=== PATIENT | female | born 1940 | race Caucasian/White ===

== ENCOUNTER 2022-06-27 19:56 | Inpatient (IN) | payer MEDICARE, OTHER ==
[~2022-06-27] VITALS: Ht 154.9 cm; Wt 51.7 kg
--- NOTE | 2022-06-27 19:56 | NUR ---
[id number] from home for sob after walking a flight of stairs, sbp 200's, o2@89%ra on arrival, given NTG SL 1tab, o2 improved 97%RA. CONNECTED PT TO POX AND MONITOR. SAFETY MEASURES IN PLACE.
--- NOTE | 2022-06-27 20:36 | NUR ---
RANDY (GRAND DAUGHTER) [phone]
[2022-06-27] MEDS ORDERED: ONDANSETRON HCL/PF 4 MG/2 ML VIAL IVP ONE (21:00)
--- NOTE | 2022-06-27 21:17 | NUR ---
UPDATED CONNIE (DAUGHTER) [phone]
[2022-06-27 21:18] LABS: BASOPHILS % (AUTO) 0.4 % (0.0-2.0); EOSINOPHILS % (AUTO) 3.2 % (0.0-6.0); HEMATOCRIT 35 % (33-45); HEMOGLOBIN 11.4 g/dL (11.5-14.8); LYMPHOCYTES # (AUTO) 2.1 K/uL (0.8-4.8); MEAN CORPUSCULAR HGB CONC 32 g/dl (31.0-36.0); MEAN CORPUSCULAR VOLUME 90 fL (82-100); MONOCYTES # (AUTO) 0.7 K/uL (0.1-1.30); MONOCYTES % (AUTO) 8.3 % (2.0-12.0); NEUTROPHILS # (AUTO) 5.4 K/uL (1.8-8.9); NEUTROPHILS % (AUTO) 63.1 % (43.0-81.0); PLATELET COUNT (AUTO) 248 K/uL (150-450); RED BLOOD CELL COUNT(AUTO) 3.91 MIL/uL (4.0-5.2); WHITE BLOOD COUNT (AUTO) 8.5 K/uL (4.3-11.0)
[2022-06-27] MEDS ORDERED: ONDANSETRON HCL/PF 4 MG/2 ML VIAL ONE (21:18)
--- NOTE | 2022-06-27 21:49 | NUR ---
UPDATED GRAND DAUGHTER (RANDY) ON PT STATUS
[2022-06-27 21:57] LABS: CALCIUM, SERUM 9.6 mg/dL (8.5-10.1); CARBON DIOXIDE 24 mmol/L (21-32); CHLORIDE 104 mmol/L (98-107); CREATININE 2.4 mg/dL (0.6-1.3); GLUCOSE 141 mg/dL (74-106); POTASSIUM 5.1 mmol/L (3.5-5.1); SODIUM SERUM 137 mmol/L (136-145); UREA NITROGEN, BLOOD 40 mg/dL (7-18)
[2022-06-27] MEDS ORDERED: CEFEPIME 1 GM VIAL ONE (21:58)
[2022-06-27] MEDS ORDERED: VANCOMYCIN 1 GM in IV D5W 250 ML IV ONE (22:00)
[2022-06-27] MEDS ORDERED: CEFEPIME 1 GM in IV D5W 50 ML IV ONE (22:00)
[2022-06-27 22:10] LABS: ALANINE AMINOTRANSFERASE 20 U/L (12-78); ALBUMIN 3.5 g/dL (3.4-5.0); ALKALINE PHOSPHATASE 48 U/L (46-116); ASPARTATE AMINOTRANSFERASE 24 U/L (15-37); BILIRUBIN,DIRECT 0.1 mg/dL (0.0-0.2); BILIRUBIN,TOTAL 0.4 mg/dL (0.2-1.0); TOTAL PROTEIN, SERUM 7.6 g/dL (6.4-8.2)
--- NOTE | 2022-06-27 22:10 | NUR ---
TROPONIN 745; DR. WYATT ROLON AT NOTIFIED Addendum: 06/28/22 at 0026 by MAMTA TROPONIN 745; DR. CONSUELO ROLON AT NOTIFIED
[2022-06-27] MEDS ORDERED: ENOXAPARIN SODIUM 60 MG/0.6 ML DISP.SYRIN SQ ONE (22:30)
[2022-06-27] MEDS ORDERED: FUROSEMIDE 40 MG/4 ML VIAL IV ONE (22:30)
[2022-06-27] MEDS ORDERED: VANCOMYCIN 1 GM VIAL ONE (22:38)
--- NOTE | 2022-06-27 23:44 | NUR ---
UPDATED JOSE ANTONIO BARRAGAN
[2022-06-28 00:07] LABS: BILIRUBIN,URINE NEGATIVE (NEGATIVE); COLOR,URINE YELLOW (YELLOW); LEUKOCYTE ESTERASE ,URINE TRACE (NEGATIVE); NITRITE, URINE NEGATIVE (NEGATIVE); PROTEIN,URINE 2+ mg/dl (NEGATIVE); UGLUCOSE NEGATIVE (NEGATIVE); UROBILINOGEN,URINE 0.2 EU/dL (0.2)
[2022-06-28 00:19] LABS: BACTERIA,URINE Rare /HPF (None Seen); RBC,URINE 0-2 /HPF (0-2); SQUAMOUS EPITHELIAL CELL,UR Few /HPF (None Seen)
[2022-06-28] MEDS ORDERED: HYDROCODONE/APAP 5/325MG TABLET PO PRN (00:30)
[2022-06-28] MEDS ORDERED: Z GUARD REMEDY 4 OZ OINT TP PRN (00:30)
[2022-06-28] MEDS ORDERED: NITROGLYCERIN 0.4 MG/TAB BOTTLE SL ONE (00:30)
[2022-06-28] MEDS ORDERED: ZOLPIDEM TARTRATE 5 MG TABLET PO PRN (00:30)
[2022-06-28] MEDS ORDERED: DEXTROSE 50%-WATER 50 ML DISP.SYRIN IV PRN (00:30)
[2022-06-28] MEDS ORDERED: MORPHINE SULFATE INJ 2 MG/ML DISP.SYRIN IV PRN (00:30)
[2022-06-28] MEDS ORDERED: ONDANSETRON HCL/PF 4 MG/2 ML VIAL IVP PRN (00:30)
[2022-06-28] MEDS ORDERED: MAG HYDROX/AL HYDROX/SIMETH 30 ML UDC PO PRN (00:30)
[2022-06-28] MEDS ORDERED: AZITHROMYCIN 500 MG in IV D5W 250 ML IV SCH ×2 (00:30→21:00)
[2022-06-28] MEDS ORDERED: MAGNESIUM HYDROXIDE 30 ML UDC PO PRN (00:30)
--- NOTE | 2022-06-28 00:54 | NUR ---
PT AMBULATORY TO RESTROOM WITH 1 PERSON ASSIST. ADLS DONE. ALL NEEDS MET AT THIS TIME. PT KEPT CLEAN AND DRY
[2022-06-28] MEDS ORDERED: AZITHROMYCIN 500 MG VIAL ONE (01:42)
--- NOTE | 2022-06-28 01:55 | NUR ---
RN DOCUMENTATION AT PT'S BEDSIDE
--- NOTE | 2022-06-28 01:56 | NUR ---
INFLUENZA SWAB COLLECTED AND SENT TO LAB
--- NOTE | 2022-06-28 02:37 | NUR ---
TROPONIN 874; JENIFFER CASE OPERATOR NOTIFIED VIA TEXT Addendum: 06/28/22 at 0238 by MAMTA TROPONIN 874; JENIFFER CASE OPERATOR NOTIFIED VIA TEXT WITH NO NEW ORDERS
--- NOTE | 2022-06-28 04:32 | NUR ---
PLATER SUPERVISOR AT 'S STEVE
[2022-06-28 05:07] LABS: BASOPHILS # (AUTO) 0.1 K/uL (0.0-0.2); BASOPHILS % (AUTO) 0.6 % (0.0-2.0); EOSINOPHILS % (AUTO) 2.8 % (0.0-6.0); HEMATOCRIT 33 % (33-45); HEMOGLOBIN 10.9 g/dL (11.5-14.8); LYMPHOCYTES # (AUTO) 2.4 K/uL (0.8-4.8); LYMPHOCYTES % (AUTO) 24.4 % (20.0-44.0); MEAN CORPUSCULAR HGB CONC 33 g/dl (31.0-36.0); MEAN CORPUSCULAR VOLUME 91 fL (82-100); MONOCYTES # (AUTO) 0.8 K/uL (0.1-1.30); MONOCYTES % (AUTO) 8.2 % (2.0-12.0); NEUTROPHILS # (AUTO) 6.3 K/uL (1.8-8.9); PLATELET COUNT (AUTO) 235 K/uL (150-450); RED BLOOD CELL COUNT(AUTO) 3.64 MIL/uL (4.0-5.2); WHITE BLOOD COUNT (AUTO) 9.8 K/uL (4.3-11.0)
[2022-06-28 05:16] LABS: CALCIUM, SERUM 9.1 mg/dL (8.5-10.1); CARBON DIOXIDE 25 mmol/L (21-32); CHLORIDE 102 mmol/L (98-107); CREATININE 2.5 mg/dL (0.6-1.3); GLUCOSE 158 mg/dL (74-106); POTASSIUM 4.7 mmol/L (3.5-5.1); SODIUM SERUM 135 mmol/L (136-145); UREA NITROGEN, BLOOD 42 mg/dL (7-18)
[2022-06-28] MEDS ORDERED: ACETAMINOPHEN 325 MG TABLET ONE (05:20)
[2022-06-28 05:22] LABS: ALANINE AMINOTRANSFERASE 18 U/L (12-78); ALBUMIN 3.3 g/dL (3.4-5.0); ALKALINE PHOSPHATASE 47 U/L (46-116); ASPARTATE AMINOTRANSFERASE 34 U/L (15-37); BILIRUBIN,DIRECT 0.1 mg/dL (0.0-0.2); BILIRUBIN,TOTAL 0.5 mg/dL (0.2-1.0); MAGNESIUM 1.9 mg/dL (1.8-2.4); PHOSPHORUS 4.1 mg/dL (2.5-4.9); TOTAL PROTEIN, SERUM 7.2 g/dL (6.4-8.2)
[2022-06-28] MEDS: ACETAMINOPHEN 325 MG TABLET PO PRN ×2 (05:22→16:43)
--- NOTE | 2022-06-28 05:37 | NUR ---
trop 1072
[2022-06-28 06:13] LABS: THYROID STIMULATING HORMONE 6.396 uIU/mL (0.358-3.74)
--- NOTE | 2022-06-28 06:39 | NUR ---
Lobo marks in LELE - 06/28/[address] ELIE ROLON AT 'S BEDSIDE FOR EVAL.
--- NOTE | 2022-06-28 06:39 | NUR ---
DR. PILO ROLON AT PT'S BEDSIDE FOR EVAL.
--- NOTE | 2022-06-28 07:15 | NUR ---
RECEVED PT FROM DANYELL CARTY PT AWAKE AND FALLOW COMMAND
--- NOTE | 2022-06-28 07:24 | NUR ---
VSS. ENDORSED MARANDA TO ANIA CARTY.
[2022-06-28 07:42] LABS: CHOLESTEROL 279 mg/dL (<200); HDL CHOLESTEROL 83 mg/dL (40-60); LDL 168 mg/dL (0-99); TRIGLYCERIDES 162 mg/dL (30-150)
[2022-06-28] MEDS: BLOOD SUGAR DIAGNOSTIC 1 EACH STRIP IN SCH ×4 (08:17→21:47)
[2022-06-28] MEDS ORDERED: PANTOPRAZOLE 40 MG VIAL IV SCH (09:00)
[2022-06-28] MEDS ORDERED: CEFTRIAXONE 1GM BAG (ER ONLY) 1 GM/50 ML PIGGYBACK IV SCH (09:00)
[2022-06-28] MEDS ORDERED: CALC-1180 PO (09:15)
[2022-06-28] MEDS ORDERED: MULT-447 PO (09:15)
--- NOTE | 2022-06-28 09:36 | NUR ---
GOT BED 113-2
[2022-06-28] MEDS: CARVEDILOL 3.125 MG TABLET PO SCH ×2 (10:30→23:46)
[2022-06-28] MEDS: ASPIRIN 81 MG TAB.CHEW PO SCH (10:30)
[2022-06-28] MEDS: FUROSEMIDE 40 MG/4 ML VIAL IV SCH ×2 (10:30→21:26)
--- NOTE | 2022-06-28 10:33 | NUR ---
WATING FOR TELMETERY BED
[2022-06-28] MEDS: PANTOPRAZOLE 40 MG TABLET.DR PO SCH (10:35)
[2022-06-28] MEDS: AMLODIPINE BESYLATE 5 MG TABLET PO SCH (10:35)
[2022-06-28] MEDS ORDERED: FUROSEMIDE 40 MG/4 ML VIAL ONE (10:37)
[2022-06-28] MEDS ORDERED: AMLODIPINE BESYLATE 10 MG TABLET ONE (10:38)
[2022-06-28] MEDS ORDERED: ASPIRIN 81 MG TAB.CHEW ONE (10:39)
[2022-06-28] MEDS ORDERED: CARVEDILOL 3.125 MG TABLET ONE (10:39)
[2022-06-28] MEDS ORDERED: PANTOPRAZOLE 40 MG TABLET.DR PO ONE (10:40)
[2022-06-28] MEDS ORDERED: CEFTRIAXONE 1 G in IV NS 0.9% 50 ML IV SCH (11:00)
--- NOTE | 2022-06-28 11:35 | NUR ---
HAND OFF DARLINE CARTY TO ROOM 115-2 VIA ILIANA JENKINS VS AND CONDITION
[2022-06-28 12:00] VITALS: BP 111/64
[2022-06-28 16:00] VITALS: BP 111/64
[2022-06-28] MEDS ORDERED: HEPARIN SODIUM, PORCINE 5000 UNITS/1 ML VIAL IVP ONE (16:00)
[2022-06-28] MEDS: HEPARIN INFUSION/D5W 500 ML IV PRN (17:46)
--- NOTE | 2022-06-28 18:18 | NUR ---
RN NOTE HEPARIN LOADING DOSE OF 4130U IV GIVEN FOLLOWED BY DRIP OF STARTING DOSE OF 885 U/HR. NO ACTIVE BLEEDING NOTED. WILL CONTINUE TO MONITOR. REPEAT PTT @ 0000 ON 06/29/22.
--- NOTE | 2022-06-28 19:10 | NUR ---
RN NOTES RECEIVED REPORT FROM MORNING RN. PATIENT IN BED A/O X2 WITH PERIODS OF CONFUSION. WITH IV ACCESS AT R WRIST #20 PATENT ON HEPARIN DRIP AT 885 UNITS/HR NO BLEEDING NOTED. ON ROOM AIR SATING 98% NO SOB NO DISTRESS NOTED AT THIS TIME. ALL SAFETY MEASURES IN PLACE AT ALL TIMES HOB ELEVATED. CALL LIGHT WITHIN REACH. WILL CLOSELY MONITOR THE PATIENT
[2022-06-28 20:00] VITALS: BP 108/60
[2022-06-28] MEDS ORDERED: ENOXAPARIN SODIUM 60 MG/0.6 ML DISP.SYRIN SQ SCH (21:00)
[2022-06-28] MEDS: ATORVASTATIN 10 MG TABLET PO SCH (21:27)
[2022-06-28] MEDS: INSULIN REGULAR, HUMAN 100 UNIT/ML 3 ML VIAL SQ PRN (21:50)
[2022-06-28 22:00] VITALS: BP 135/80
--- NOTE | 2022-06-28 23:30 | NUR ---
RN NOTES PATIENT IS AGITATED CRYING AND TRGYING TO GET OURT OF BED. DR SWIFT MADE AWARE WITH NEW ORDER FOR ZYPREZA 1 TIME DOOSE. WILL CONTINUE TO MONITOR THE PATIENT
[2022-06-29] VITALS: BP 110/68
[2022-06-29] MEDS ORDERED: OLANZAPINE 10 MG VIAL IM ONE (01:00)
--- NOTE | 2022-06-29 01:30 | NUR ---
RN NOTES APTT RESULT 170. HEPARIN HOLD FOR 60 MINUTES THEN DECREASE DOSE TO 685 UNITS/HR. REPET APTT AT 0730. WILL CLOSELY MONITOR THE PATIENT
[2022-06-29 04:00] VITALS: BP 110/68
[2022-06-29 06:07] LABS: BASOPHILS % (AUTO) 0.3 % (0.0-2.0); EOSINOPHILS % (AUTO) 1.8 % (0.0-6.0); HEMATOCRIT 37 % (33-45); HEMOGLOBIN 11.9 g/dL (11.5-14.8); LYMPHOCYTES # (AUTO) 2.6 K/uL (0.8-4.8); LYMPHOCYTES % (AUTO) 25.3 % (20.0-44.0); MEAN CORPUSCULAR HGB CONC 33 g/dl (31.0-36.0); MEAN CORPUSCULAR VOLUME 90 fL (82-100); MONOCYTES # (AUTO) 0.7 K/uL (0.1-1.30); MONOCYTES % (AUTO) 6.7 % (2.0-12.0); NEUTROPHILS # (AUTO) 6.7 K/uL (1.8-8.9); NEUTROPHILS % (AUTO) 65.9 % (43.0-81.0); PLATELET COUNT (AUTO) 266 K/uL (150-450); RED BLOOD CELL COUNT(AUTO) 4.03 MIL/uL (4.0-5.2); WHITE BLOOD COUNT (AUTO) 10.2 K/uL (4.3-11.0)
[2022-06-29 06:39] LABS: ALANINE AMINOTRANSFERASE 20 U/L (12-78); ALBUMIN 3.7 g/dL (3.4-5.0); ALKALINE PHOSPHATASE 51 U/L (46-116); ASPARTATE AMINOTRANSFERASE 27 U/L (15-37); BILIRUBIN,TOTAL 0.4 mg/dL (0.2-1.0); CALCIUM, SERUM 9.6 mg/dL (8.5-10.1); CARBON DIOXIDE 22 mmol/L (21-32); CHLORIDE 97 mmol/L (98-107); CREATININE 3.6 mg/dL (0.6-1.3); GLUCOSE 186 mg/dL (74-106); PHOSPHORUS 5.7 mg/dL (2.5-4.9); POTASSIUM 4.5 mmol/L (3.5-5.1); SODIUM SERUM 134 mmol/L (136-145); UREA NITROGEN, BLOOD 49 mg/dL (7-18)
[2022-06-29 06:42] LABS: CHOLESTEROL 292 mg/dL (<200); HDL CHOLESTEROL 101 mg/dL (40-60); LDL 179 mg/dL (0-99); TRIGLYCERIDES 94 mg/dL (30-150)
--- NOTE | 2022-06-29 06:51 | NUR ---
RN NOTES PATIENT REMAINS STABLE NO SIGNIFICANT CHANGES. IV ACCESS PATENT ON HEPARIN DRIP AT 685 UNITS/HR NO BLEEDING NOTED. WITH BILATERAL WRIST RESTRAINTS IN PLACE, ALL SAFETY MEASURES IN PLACE AT ALL TIMES, WILL ENDORSED TO MORNING SHIFT FO9R MARANDA
--- NOTE | 2022-06-29 07:56 | NUR ---
RN OPENING NOTES RECEIVED PATIENT IN BED A/O X2 WITH PERIODS OF CONFUSION. WITH IV ACCESS AT R WRIST #20 PATENT ON HEPARIN DRIP AT 685 UNITS/HR NO BLEEDING NOTED. 0730 PTT DRAWN RESUMED HEPARIN DRIP PENDING RESULTS.ON ROOM AIR NO SOB NO DISTRESS NOTED AT THIS TIME. ALL SAFETY MEASURES IN PLACE AT ALL TIMES HOB ELEVATED. CALL LIGHT WITHIN REACH.
[2022-06-29 08:00] VITALS: BP 169/81
[2022-06-29] MEDS: AMLODIPINE BESYLATE 5 MG TABLET PO SCH (08:25)
[2022-06-29] MEDS: INSULIN REGULAR, HUMAN 100 UNIT/ML 3 ML VIAL SQ PRN ×4 (08:25→21:33)
[2022-06-29] MEDS: ASPIRIN 81 MG TAB.CHEW PO SCH (08:25)
[2022-06-29] MEDS: FUROSEMIDE 40 MG/4 ML VIAL IV SCH (08:25)
[2022-06-29] MEDS: PANTOPRAZOLE 40 MG TABLET.DR PO SCH (08:26)
[2022-06-29] MEDS: BLOOD SUGAR DIAGNOSTIC 1 EACH STRIP IN SCH ×4 (08:26→21:32)
[2022-06-29] MEDS: CARVEDILOL 3.125 MG TABLET PO SCH ×2 (08:26→21:22)
--- NOTE | 2022-06-29 09:00 | NUR ---
RN NOTE RECEIVED PTT 132.2 WILL HOLD INFUSION FOR 1HR AND AT 1000 BY 200UNITS TO 485U/HR. NEXT PTT DRAW 1600. CHARGE NURSE MADE AWARE
[2022-06-29 12:00] VITALS: BP 135/58
[2022-06-29 16:00] VITALS: BP 108/60
--- NOTE | 2022-06-29 17:00 | NUR ---
RN NOTE PTT 77.3 DECREASED HEPARIN TO 435 UNITS/HR. CONFIRMED WITH CHARGE NURSE. NEXT PTT 2100 Addendum: 06/29/22 at 1750 by JOSE ANDRADE RN NEXT PTT 2300
[2022-06-29] MEDS: ENSURE ENLIVE 237 ML LIQUID (VANILLA) PO SCH (17:03)
--- NOTE | 2022-06-29 18:42 | NUR ---
RN CLOSING NOTES RECEIVED PATIENT IN BED A/O X2 WITH PERIODS OF CONFUSION. WITH IV ACCESS AT R WRIST #20 PATENT ON HEPARIN DRIP AT 435 UNITS/HR NO BLEEDING NOTED. NEXT PTT TO BE DRAWN 2300.ON ROOM AIR NO SOB NO DISTRESS NOTED AT THIS TIME. ALL SAFETY MEASURES IN PLACE AT ALL TIMES HOB ELEVATED. CALL LIGHT WITHIN REACH. WILL ENDORSE TO NIGHT NURSE FOR MARANDA
[2022-06-29 20:00] VITALS: BP 154/62
[2022-06-29] MEDS: ATORVASTATIN 10 MG TABLET PO SCH (21:21)
[2022-06-30] VITALS: BP 153/63
[2022-06-30 04:00] VITALS: BP 107/56
--- NOTE | 2022-06-30 07:03 | NUR ---
RN NOTES PATIENT REMAINS STABLE NO SIGNIFICANT CHANGES. IV ACCESS PATENT ON HEPARIN DRIP AT 435 UNITS/HR NO BLEEDING NOTED. WITH BILATERAL WRIST RESTRAINTS IN PLACE, ALL SAFETY MEASURES IN PLACE AT ALL TIMES, WILL ENDORSED TO MORNING SHIFT FO9R MARANDA
[2022-06-30] MEDS: HEPARIN INFUSION/D5W 500 ML IV PRN (07:24)
[2022-06-30] MEDS: BLOOD SUGAR DIAGNOSTIC 1 EACH STRIP IN SCH ×4 (07:50→21:35)
[2022-06-30 08:00] VITALS: BP 118/67
[2022-06-30] MEDS: ENSURE ENLIVE 237 ML LIQUID (VANILLA) PO SCH (08:00)
[2022-06-30] MEDS: CARVEDILOL 3.125 MG TABLET PO SCH ×2 (08:05→20:10)
[2022-06-30] MEDS: PANTOPRAZOLE 40 MG TABLET.DR PO SCH (08:05)
[2022-06-30] MEDS: ASPIRIN 81 MG TAB.CHEW PO SCH (08:05)
[2022-06-30] MEDS: AMLODIPINE BESYLATE 5 MG TABLET PO SCH (08:06)
[2022-06-30 08:15] LABS: BASOPHILS % (AUTO) 0.3 % (0.0-2.0); EOSINOPHILS % (AUTO) 2.1 % (0.0-6.0); HEMATOCRIT 36 % (33-45); HEMOGLOBIN 11.5 g/dL (11.5-14.8); LYMPHOCYTES # (AUTO) 2.5 K/uL (0.8-4.8); LYMPHOCYTES % (AUTO) 23.4 % (20.0-44.0); MEAN CORPUSCULAR HGB CONC 32 g/dl (31.0-36.0); MEAN CORPUSCULAR VOLUME 90 fL (82-100); MONOCYTES # (AUTO) 0.8 K/uL (0.1-1.30); NEUTROPHILS # (AUTO) 7.3 K/uL (1.8-8.9); NEUTROPHILS % (AUTO) 67.2 % (43.0-81.0); PLATELET COUNT (AUTO) 293 K/uL (150-450); RED BLOOD CELL COUNT(AUTO) 3.96 MIL/uL (4.0-5.2); WHITE BLOOD COUNT (AUTO) 10.8 K/uL (4.3-11.0)
--- NOTE | 2022-06-30 08:29 | NUR ---
RN NOTE APTT 59.4. NO CHANGE IN HEPARIN DRIP PER PROTOCOL. NEXT APTT IN 24 HOURS PER PROTOCOL
[2022-06-30] MEDS: INSULIN REGULAR, HUMAN 100 UNIT/ML 3 ML VIAL SQ PRN ×4 (08:33→21:35)
[2022-06-30 08:47] LABS: ALANINE AMINOTRANSFERASE 19 U/L (12-78); ALBUMIN 3.6 g/dL (3.4-5.0); ALKALINE PHOSPHATASE 49 U/L (46-116); ASPARTATE AMINOTRANSFERASE 23 U/L (15-37); BILIRUBIN,TOTAL 0.4 mg/dL (0.2-1.0); CARBON DIOXIDE 24 mmol/L (21-32); CHLORIDE 96 mmol/L (98-107); CREATININE 4.1 mg/dL (0.6-1.3); GLUCOSE 155 mg/dL (74-106); MAGNESIUM 2.2 mg/dL (1.8-2.4); PHOSPHORUS 6.3 mg/dL (2.5-4.9); POTASSIUM 4.2 mmol/L (3.5-5.1); SODIUM SERUM 134 mmol/L (136-145); UREA NITROGEN, BLOOD 58 mg/dL (7-18)
--- NOTE | 2022-06-30 09:07 | NUR ---
lab called in stated that Troponin level went up to 1106 today notified to waiting for returned call back
--- NOTE | 2022-06-30 09:49 | NUR ---
RN NOTE DAUGHTER CONNIE UPDATED ON PT'S CONDITION
[2022-06-30] MEDS: HEPARIN SODIUM, PORCINE 5000 UNITS/1 ML VIAL SQ SCH ×2 (11:01→20:17)
[2022-06-30 12:00] VITALS: BP 108/55
--- NOTE | 2022-06-30 15:23 | NUR ---
RN NOTE FAMILY AT BEDSIDE. DAUGHTER AND GRAND DAUGHTER UPDATED ON PT'S SITUATION. GRAND DAUGHTER WISHES TO SPEAK WITH CM REGARDING DISCHARGE PLAN. CM NUMBER GIVEN TO FAMILY. FAMILY IN AGREEMENT WITH POC AT THIS TIME.
[2022-06-30 16:00] VITALS: BP 98/57
--- NOTE | 2022-06-30 16:00 | NUR ---
RN NOTE BILATERAL SOFT WRIST RESTRAINS REMOVED AT THIS TIME. PT IS COOPERATIVE. STILL WITH SOME CONFUSION BUT VERBALIZES UNDERSTANDING OF STAYING IN BED AT THIS TIME. FAMILY AT BEDSIDE.
[2022-06-30 20:00] VITALS: BP 116/60
[2022-06-30] MEDS: ACETAMINOPHEN 325 MG TABLET PO PRN (20:06)
[2022-06-30] MEDS: ATORVASTATIN 10 MG TABLET PO SCH (22:00)
[2022-07-01] VITALS: BP 151/66
[2022-07-01 04:00] VITALS: BP 124/74
[2022-07-01 06:01] LABS: BASOPHILS % (AUTO) 0.3 % (0.0-2.0); EOSINOPHILS % (AUTO) 2.6 % (0.0-6.0); HEMATOCRIT 35 % (33-45); HEMOGLOBIN 11.5 g/dL (11.5-14.8); LYMPHOCYTES # (AUTO) 1.9 K/uL (0.8-4.8); LYMPHOCYTES % (AUTO) 21.6 % (20.0-44.0); MEAN CORPUSCULAR HGB CONC 33 g/dl (31.0-36.0); MEAN CORPUSCULAR VOLUME 89 fL (82-100); MONOCYTES # (AUTO) 0.8 K/uL (0.1-1.30); MONOCYTES % (AUTO) 9.1 % (2.0-12.0); NEUTROPHILS # (AUTO) 5.8 K/uL (1.8-8.9); NEUTROPHILS % (AUTO) 66.4 % (43.0-81.0); PLATELET COUNT (AUTO) 281 K/uL (150-450); RED BLOOD CELL COUNT(AUTO) 3.93 MIL/uL (4.0-5.2); WHITE BLOOD COUNT (AUTO) 8.7 K/uL (4.3-11.0)
[2022-07-01 06:15] LABS: CALCIUM, SERUM 9.1 mg/dL (8.5-10.1); CARBON DIOXIDE 24 mmol/L (21-32); CHLORIDE 98 mmol/L (98-107); CREATININE 4.4 mg/dL (0.6-1.3); GLUCOSE 176 mg/dL (74-106); MAGNESIUM 2.2 mg/dL (1.8-2.4); PHOSPHORUS 6.2 mg/dL (2.5-4.9); POTASSIUM 4.6 mmol/L (3.5-5.1); SODIUM SERUM 136 mmol/L (136-145); UREA NITROGEN, BLOOD 68 mg/dL (7-18)
--- NOTE | 2022-07-01 07:01 | NUR ---
END OF SHIFT, PT A/O X2, WITH INTERMITTENT CONFUSION, AT ROOM AIR, NO SOB/ACUTE DISTRESS NOTED, NSR IN TELE MONITOR, PT JUST PULLED IV THIS MORNING, LEFT FA 20G INSERTED, PATENT AND INTACT, ON BILATERAL SOFT WRITS RESTRAINS, NO CIRCULATION COMPROMISED, NO ABNORMALITY NOTED AT SITE, ALL SAFETY MEASURES IN PLACE. CALL LIGHT WITHIN REACH, BED LOCKED AT LOWEST POSITION, SIDE RAILS UP X2, OTHERWISE NO SIGNIFICANT CHANGE IN CONDITION DURING THE NIGHT, ENDORSE TO SPRING INTERN FOR CONTINUITY OF CARE.
--- NOTE | 2022-07-01 07:22 | NUR ---
RN OPENING NOTES RECEIVED PATIENT IN BED A/O X2 WITH PERIODS OF CONFUSION. WITH IV ACCESS AT R WRIST #20 .ON ROOM AIR NO SOB NO DISTRESS NOTED AT THIS TIME. ALL SAFETY MEASURES IN PLACE AT ALL TIMES HOB ELEVATED. CALL LIGHT WITHIN REACH.
[2022-07-01 08:00] VITALS: BP 140/77
[2022-07-01] MEDS: BLOOD SUGAR DIAGNOSTIC 1 EACH STRIP IN SCH ×4 (08:44→21:57)
[2022-07-01] MEDS: ASPIRIN 81 MG TAB.CHEW PO SCH (08:45)
[2022-07-01] MEDS: AMLODIPINE BESYLATE 5 MG TABLET PO SCH (08:45)
[2022-07-01] MEDS: PANTOPRAZOLE 40 MG TABLET.DR PO SCH (08:45)
[2022-07-01] MEDS: CARVEDILOL 3.125 MG TABLET PO SCH ×2 (08:46→21:56)
[2022-07-01] MEDS: HEPARIN SODIUM, PORCINE 5000 UNITS/1 ML VIAL SQ SCH ×2 (08:48→21:57)
[2022-07-01] MEDS: ENSURE ENLIVE 237 ML LIQUID (VANILLA) PO SCH (08:55)
[2022-07-01] MEDS: INSULIN REGULAR, HUMAN 100 UNIT/ML 3 ML VIAL SQ PRN ×3 (11:29→21:57)
[2022-07-01 12:00] VITALS: BP 127/76
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
[2022-07-01 16:00] VITALS: BP 138/64
--- NOTE | 2022-07-01 16:00 | NUR ---
RN NOTE PSYCH EVAL PLACED REQUESTED BY MILITARY COMMUNICATIONS SPECIALIST. DR GARCIA MADE AWARE. FACE SHEET SENT TO [employer]
--- NOTE | 2022-07-01 18:42 | NUR ---
RN CLOSING NOTES RECEIVED PATIENT IN BED A/O X2 WITH PERIODS OF CONFUSION. WITH IV ACCESS AT LEFT WRIST #20 SL .ON ROOM AIR NO SOB NO DISTRESS NOTED AT THIS TIME. ALL SAFETY MEASURES IN PLACE AT ALL TIMES HOB ELEVATED. CALL LIGHT WITHIN REACH. WILL ENDORSE TO NIGHT NURSE FOR MARANDA
[2022-07-01 20:00] VITALS: BP 136/69
[2022-07-01] MEDS: ATORVASTATIN 10 MG TABLET PO SCH (21:56)
[2022-07-02] VITALS: BP 135/76
[2022-07-02 06:00] VITALS: BP 135/70
[2022-07-02 06:17] LABS: BASOPHILS % (AUTO) 0.4 % (0.0-2.0); EOSINOPHILS % (AUTO) 1.3 % (0.0-6.0); HEMATOCRIT 34 % (33-45); HEMOGLOBIN 10.9 g/dL (11.5-14.8); LYMPHOCYTES # (AUTO) 1.4 K/uL (0.8-4.8); LYMPHOCYTES % (AUTO) 13.5 % (20.0-44.0); MEAN CORPUSCULAR HGB CONC 32 g/dl (31.0-36.0); MEAN CORPUSCULAR VOLUME 90 fL (82-100); MONOCYTES # (AUTO) 0.5 K/uL (0.1-1.30); MONOCYTES % (AUTO) 5.3 % (2.0-12.0); NEUTROPHILS # (AUTO) 8.2 K/uL (1.8-8.9); NEUTROPHILS % (AUTO) 79.5 % (43.0-81.0); PLATELET COUNT (AUTO) 273 K/uL (150-450); RED BLOOD CELL COUNT(AUTO) 3.76 MIL/uL (4.0-5.2); WHITE BLOOD COUNT (AUTO) 10.3 K/uL (4.3-11.0)
[2022-07-02 06:55] LABS: CALCIUM, SERUM 8.9 mg/dL (8.5-10.1); CARBON DIOXIDE 26 mmol/L (21-32); CHLORIDE 99 mmol/L (98-107); CREATININE 4.1 mg/dL (0.6-1.3); GLUCOSE 150 mg/dL (74-106); MAGNESIUM 2.5 mg/dL (1.8-2.4); PHOSPHORUS 6.5 mg/dL (2.5-4.9); POTASSIUM 4.3 mmol/L (3.5-5.1); SODIUM SERUM 138 mmol/L (136-145); UREA NITROGEN, BLOOD 75 mg/dL (7-18)
--- NOTE | 2022-07-02 07:00 | NUR ---
RN NOTE RECEIVED PATIENT IN BED RESTING,CONFUSED,ON ROOM AIR O2:96% IV SITE IS ON LEFT FOREARM INTACT PATENT,INCONTINENT BOWEL/BLADDER SAFETY MEASURE IMPLEMENT BED IN LOW POSITION AND LOCKED,BED ALARM IS ON CONTINUE TO MONITOR.
--- NOTE | 2022-07-02 07:18 | NUR ---
RN NOTES, PATIENT ON RA, NO SOB/ACUTE DISTRESS NOTED, WITH INTERMITTENT CONFUSION AT TIMES, WITH OPTIMAL O2 SAT LEVEL, NO SIGNIFICANT CHANGE IN CONDITION, SR UP x3, CALL LIGHT WITHIN REACH, BED LOCKED AND IN LOWEST POSITION , ENDORSED TO LUIS ENRIQUE RN FOR CONTINUATION OF CARE.
[2022-07-02] MEDS: ENSURE ENLIVE 237 ML LIQUID (VANILLA) PO SCH (07:36)
[2022-07-02] MEDS: BLOOD SUGAR DIAGNOSTIC 1 EACH STRIP IN SCH ×4 (07:38→22:14)
[2022-07-02 08:00] VITALS: BP 162/74
[2022-07-02] MEDS: CARVEDILOL 3.125 MG TABLET PO SCH ×2 (08:28→22:05)
[2022-07-02] MEDS: PANTOPRAZOLE 40 MG TABLET.DR PO SCH (08:29)
[2022-07-02] MEDS: AMLODIPINE BESYLATE 5 MG TABLET PO SCH (08:29)
[2022-07-02] MEDS: ASPIRIN 81 MG TAB.CHEW PO SCH (08:32)
[2022-07-02] MEDS: HEPARIN SODIUM, PORCINE 5000 UNITS/1 ML VIAL SQ SCH ×2 (08:33→22:06)
[2022-07-02] MEDS ORDERED: QUETIAPINE FUMARATE 25 MG TABLET PO PRN (10:00)
--- NOTE | 2022-07-02 10:03 | NUR ---
RN NOTE PT SEEN BY DR ALICEA, ORDERED,GRIMM CATH INSERTION FOR STRICT MEASURING INTAKE AND OUTPUT NOTED AND CARRIED OUT,INSERT GRIMM CATH 16 FR MD ORDERED.
--- NOTE | 2022-07-02 10:40 | NUR ---
[employer] Application: Per pt.'s daughter, Clara tel:[phone] request SW emailed her the [employer] application and provided link to [employer] website for additional information and instructions to [email or web address].
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
[2022-07-02] MEDS: INSULIN REGULAR, HUMAN 100 UNIT/ML 3 ML VIAL SQ PRN ×3 (11:52→22:07)
[2022-07-02] MEDS: IV NS 0.9% 1,000 ML IV PRN (15:05)
[2022-07-02 16:00] VITALS: BP 138/59
--- NOTE | 2022-07-02 18:30 | NUR ---
RN NOTE PATIENT REMAINS CONFUSED ON ROOM AIR O2:97% NO SOB NOT ACUTE DISTRESS NOTED,ALL DUE MEDS GIVEN MD ORDERED,GRIMM IN PLACE URINE DRAINING YELLOW AND CLEAR BY GRAVITY,KEPT CLEAN AND DRY ALL THE TIME,REPOSITIONED AND TURNED EVERY 2 HOURS.ALL NEEDS MET,WILL ENDORSE NEXT COMING SHIFT FOR CONTINUATION OF CARE
[2022-07-02] MEDS: ACETAMINOPHEN 325 MG TABLET PO PRN (18:43)
--- NOTE | 2022-07-02 18:43 | NUR ---
RN NOTE ACETAMINOPHEN 650 PRN GIVEN PATIENT REQUESTED,CONTINUE TO MONITOR.
[2022-07-02] MEDS: ATORVASTATIN 10 MG TABLET PO SCH (22:01)
[2022-07-03] VITALS: BP 139/76
[2022-07-03] MEDS: IV NS 0.9% 1,000 ML IV PRN (02:01)
[2022-07-03 04:00] VITALS: BP 147/84
--- NOTE | 2022-07-03 06:56 | NUR ---
END OF SHIFT, PATIENT ON RA, NO SOB/ACUTE DISTRESS NOTED, WITH INTERMITTENT CONFUSION AT TIMES, WITH OPTIMAL O2 SAT LEVEL, WITH F/C IN PLACE 450ML DURING THE NIGHT, OTHERWISE NO SIGNIFICANT CHANGE IN CONDITION, SR UP x3, CALL LIGHT WITHIN REACH, BED LOCKED AND IN LOWEST POSITION , WILL ENDORSE CONTINUITY OF CARE TO ONCOMING NURSE.
--- NOTE | 2022-07-03 07:20 | NUR ---
RN NOTE RECEIVED PATIENT IN BED RESTING,CONFUSED,SLEEPING,VERBALLY RESPONSIVE ON ROOM AIR O2:95%,IV SITE IS ON LEFT FOREARM INTACT PATENT,INCONTINENT BOWEL/BLADDER,SAFETY MEASURE IMPLEMENT,BED IN LOW POSITION AND LOCKED,BED ALARM IS ON,CONTINUE TO MONITOR.
[2022-07-03 08:00] VITALS: BP 105/51
[2022-07-03 08:07] LABS: CALCIUM, SERUM 8.7 mg/dL (8.5-10.1); CARBON DIOXIDE 24 mmol/L (21-32); CHLORIDE 106 mmol/L (98-107); CREATININE 3.3 mg/dL (0.6-1.3); GLUCOSE 114 mg/dL (74-106); POTASSIUM 5.2 mmol/L (3.5-5.1); SODIUM SERUM 140 mmol/L (136-145); UREA NITROGEN, BLOOD 66 mg/dL (7-18)
[2022-07-03] MEDS: ENSURE ENLIVE 237 ML LIQUID (VANILLA) PO SCH (08:10)
[2022-07-03] MEDS: BLOOD SUGAR DIAGNOSTIC 1 EACH STRIP IN SCH ×4 (08:10→22:37)
[2022-07-03] MEDS: HEPARIN SODIUM, PORCINE 5000 UNITS/1 ML VIAL SQ SCH ×2 (08:30→22:36)
[2022-07-03] MEDS: ASPIRIN 81 MG TAB.CHEW PO SCH (08:33)
[2022-07-03] MEDS: AMLODIPINE BESYLATE 5 MG TABLET PO SCH (08:39)
[2022-07-03] MEDS: CARVEDILOL 3.125 MG TABLET PO SCH ×2 (08:40→22:35)
[2022-07-03] MEDS: PANTOPRAZOLE 40 MG TABLET.DR PO SCH (08:42)
[2022-07-03] MEDS ORDERED: SODIUM POLYSTYRENE SULFONATE 15 G/60 ML BOTTLE PO ONE (09:00)
--- NOTE | 2022-07-03 09:15 | NUR ---
RN NOTE KAYEXELATE 30 GRAM GIVEN ONCE FOR POTASSIUM 5.2 MD ORDERED,CONTINUE TO MONITOR.
--- NOTE | 2022-07-03 09:45 | NUR ---
RECEIVED PATIENT ASLEEP BUT AROUSABLE, ORIENTED TO PERSON, BUT SOME CONFUSION, NO SIGNS AND SYMPTOMS OF IN DISTRESS, NO COMPLAINT OF SHORT OF BREATHE. STILL ON RESTRAINT BILATERAL,
[2022-07-03] MEDS: INSULIN REGULAR, HUMAN 100 UNIT/ML 3 ML VIAL SQ PRN ×3 (11:32→22:40)
[2022-07-03 12:00] VITALS: BP 117/56
[2022-07-03] MEDS ORDERED: POLYETHYLENE GLYCOL 3350 17 GM POWD.PACK PO STA (13:36)
[2022-07-03] MEDS: ACETAMINOPHEN 325 MG TABLET PO PRN ×2 (13:47→22:34)
--- NOTE | 2022-07-03 14:03 | NUR ---
miralux given as per order due to constipation, Tylenol given one time due to complaint of right shoulder, unable to assess pain scale, will check after an hour for pain, daughter at bedside.
--- NOTE | 2022-07-03 15:31 | NUR ---
Psych consult update: SW received voicemail from the pt.' daughter, Clara [phone] and the APS worker, Johnson [phone] and SW updated both of them about psychiatrist evaluation & recommendation (See psych note for details. Both the daughter. Clara and APS worker were agreeable to psychiatrist recommendation. STACY also informed both parties that DC recommendation by is still pending. CM to follow up. STACY emailed Clara Conservatorship informational packets ad referral to [facility] legal services at [phone] as they can help with application process. Clara expressed understanding and stated she will file for conservatorship if it comes to that. Clara and her sister, Akira per [employer] directive must make decisions together about pt.'s healthcare. However, they have family issues and if they cannot agree they must file for conservatorship. SW will be available as needed.
[2022-07-03 16:00] VITALS: BP 127/61
--- NOTE | 2022-07-03 16:28 | NUR ---
Road Cutter requested by family. STACY called [facility] [Address:[address] [place] [id number];Phone: ]. Per patient care secretary she will call Father, Mac and set up time for today or possibly tomorrow. Family wants prayer/anointing for pt. not last rites. STACY provided advent with daughterClara tel: [phone] and they will notify her when house supervisor will be available.
[2022-07-03] MEDS ORDERED: BISACODYL SUPP (10 MG) 10 MG/SUPP.RECT SUPP.RECT RC PRN (16:30)
--- NOTE | 2022-07-03 16:47 | NUR ---
RN NOTE REPORT GIVEN TO JOSE CARTY FOR CONTINUATION OF CARE
--- NOTE | 2022-07-03 17:00 | NUR ---
RN NOTE PER FAMILY AND PATIENT REQUEST FOR A ENEMA. INFORMED VERAS ELECTROPHYSIOLOGY TECHNOLOGIST RECEIVED ORDER FOR FLEET ENEMA. ADMINISTERED ENEMA PT HAD A LARGE BM AND STATED SHE FELT BETTER.
[2022-07-03] MEDS ORDERED: NA PHOS,M-B/NA PHOS,DI-BA 1 EA ENEMA RC PRN (18:00)
--- NOTE | 2022-07-03 18:35 | NUR ---
RN CLOSING NOTE PATIENT ON RA, NO SOB/ACUTE DISTRESS NOTED, WITH INTERMITTENT CONFUSION AT TIMES, WITH OPTIMAL O2 SAT LEVEL. GRIMM CATH IN PLACE DRAINING CLEAR LIQUID URINE. IV ACCESS ON LEFT WRIST SL. SAFETY MEASURES IN PLACE CALL LIGHT WITHIN REACH, BED LOCKED AND IN LOWEST POSITION , WILL ENDORSE CONTINUITY OF CARE TO ONCOMING NURSE.
[2022-07-03 20:00] VITALS: BP 133/58
[2022-07-03] MEDS: ATORVASTATIN 10 MG TABLET PO SCH (22:34)
[2022-07-04] VITALS (7 sets, daily range): BP systolic 120–146; BP diastolic 45–81
--- NOTE | 2022-07-04 07:37 | NUR ---
PRICING ASSOCIATE NOTE PATIENT ON RA, NO SOB/ACUTE DISTRESS NOTED, WITH SOME CONFUSION AT TIMES,O2 SAT LEVEL. GRIMM CATH TO GRAVITY IN PLACE DRAINING WELL ,. IV ACCESS ON LEFT FA INTACT AND IN PLACE. SAFETY MEASURES IN PLACE CALL LIGHT WITHIN REACH, BED LOCKED AND IN LOWEST POSITION , WILL CONT TO MONITOR CLOSELY
--- NOTE | 2022-07-04 07:44 | NUR ---
RN CLOSING NOTE A/OX2, PERIOD OF CONFUSION. VERY PLEASANT. ROOM AIR. C/O HEADACHE PRN TYLENOL GIVEN. SINUS RHYTHM ON THE MONITOR. GRIMM CATHETER MAINTAINED. BM X1. SKIN INTACT, MEPILEX FOR PREVENTION. CM WORKING ON ALPHONSE AND ENCINO TRANSFER. NEURO CONSULT [ENDING WELL CT HEAD WO CONTRAST.
[2022-07-04 07:45] LABS: BASOPHILS % (AUTO) 0.3 % (0.0-2.0); EOSINOPHILS % (AUTO) 5.3 % (0.0-6.0); HEMATOCRIT 30 % (33-45); LYMPHOCYTES % (AUTO) 20.2 % (20.0-44.0); MEAN CORPUSCULAR HGB CONC 33 g/dl (31.0-36.0); MEAN CORPUSCULAR VOLUME 90 fL (82-100); MONOCYTES # (AUTO) 0.9 K/uL (0.1-1.30); MONOCYTES % (AUTO) 9.1 % (2.0-12.0); NEUTROPHILS # (AUTO) 6.4 K/uL (1.8-8.9); NEUTROPHILS % (AUTO) 65.1 % (43.0-81.0); PLATELET COUNT (AUTO) 253 K/uL (150-450); RED BLOOD CELL COUNT(AUTO) 3.37 MIL/uL (4.0-5.2); WHITE BLOOD COUNT (AUTO) 9.8 K/uL (4.3-11.0)
--- NOTE | 2022-07-04 07:50 | NUR ---
ANALYTICS ARCHITECT NOTE PATIENT IN BED ,ALERT ORIENTED, ON TELE MONITOR SR , NO SOB NOTED AT THIS TIME, LT FA HL INTACT AND IN PLACE , BED IN LOWEST AND LOCKED POSITION, WILL CONT TO MONITOR
[2022-07-04 08:02] LABS: CALCIUM, SERUM 8.7 mg/dL (8.5-10.1); CARBON DIOXIDE 26 mmol/L (21-32); CHLORIDE 106 mmol/L (98-107); CREATININE 2.8 mg/dL (0.6-1.3); GLUCOSE 146 mg/dL (74-106); MAGNESIUM 2.5 mg/dL (1.8-2.4); PHOSPHORUS 4.4 mg/dL (2.5-4.9); POTASSIUM 3.9 mmol/L (3.5-5.1); SODIUM SERUM 141 mmol/L (136-145); UREA NITROGEN, BLOOD 58 mg/dL (7-18)
[2022-07-04] MEDS: CARVEDILOL 3.125 MG TABLET PO SCH ×2 (08:47→21:24)
[2022-07-04] MEDS: PANTOPRAZOLE 40 MG TABLET.DR PO SCH (08:47)
[2022-07-04] MEDS: ASPIRIN 81 MG TAB.CHEW PO SCH (08:47)
[2022-07-04] MEDS: AMLODIPINE BESYLATE 5 MG TABLET PO SCH (08:48)
[2022-07-04] MEDS: HEPARIN SODIUM, PORCINE 5000 UNITS/1 ML VIAL SQ SCH (08:48)
[2022-07-04] MEDS: ENSURE ENLIVE 237 ML LIQUID (VANILLA) PO SCH ×2 (08:57→16:15)
[2022-07-04] MEDS: BLOOD SUGAR DIAGNOSTIC 1 EACH STRIP IN SCH ×4 (08:57→21:35)
[2022-07-04] MEDS: INSULIN REGULAR, HUMAN 100 UNIT/ML 3 ML VIAL SQ PRN ×2 (11:53→21:34)
--- NOTE | 2022-07-04 12:06 | NUR ---
telephone technician note ct head done as ordered
--- NOTE | 2022-07-04 14:00 | NUR ---
teleprinter installer note rounds made, turn reposition, keep clean dry ,family at bedside
--- NOTE | 2022-07-04 15:26 | NUR ---
COMPUTER EQUIPMENT INSTALLER NOTE SPOKE WITH DR DAIGLE ABOUT HEPARIN ORDER , ORDERED TO D\C HEPARIN , ORDER CARRIED OUT
--- NOTE | 2022-07-04 15:50 | NUR ---
telephone engineer note mri consent sighed by daughter
[2022-07-04 16:02] LABS: FREE T4 (FREE THYROXINE) 1.13 ng/dL (0.76-1.46); THYROID STIMULATING HORMONE 2.091 uIU/mL (0.358-3.74)
[2022-07-04] MEDS: ACETAMINOPHEN 325 MG TABLET PO PRN (17:17)
--- NOTE | 2022-07-04 17:27 | NUR ---
CARDIAC CATH TECHNICIAN NOTE C\O HEADACHE TYLENOL PO GIVEN ORDERED, WILL F\U
--- NOTE | 2022-07-04 19:08 | NUR ---
telecom specialist note patient in bed , all needs attended , family at bedside, all needs attended
--- NOTE | 2022-07-04 20:00 | NUR ---
RN NOTES RECEIVED REPORT FROM MORNING RN. PATIENT IN BED A/O X2 WITH PERIODS OF CONFUSION. WITH IV ACCESS AT LFA #22 PATENT SALINE LOCK. ON ROOM AIR SATING 98% NO SOB NO DISTRESS NOTED AT THIS TIME. ALL SAFETY MEASURES IN PLACE AT ALL TIMES HOB ELEVATED. CALL LIGHT WITHIN REACH. WILL CLOSELY MONITOR THE PATIENT
[2022-07-04] MEDS: ATORVASTATIN 10 MG TABLET PO SCH (21:24)
[2022-07-05] VITALS: BP 120/54
[2022-07-05 04:00] VITALS: BP 135/65
[2022-07-05 06:01] LABS: BASOPHILS % (AUTO) 0.3 % (0.0-2.0); EOSINOPHILS % (AUTO) 7.6 % (0.0-6.0); HEMATOCRIT 31 % (33-45); HEMOGLOBIN 10.2 g/dL (11.5-14.8); LYMPHOCYTES # (AUTO) 1.3 K/uL (0.8-4.8); LYMPHOCYTES % (AUTO) 16.4 % (20.0-44.0); MEAN CORPUSCULAR HGB CONC 33 g/dl (31.0-36.0); MEAN CORPUSCULAR VOLUME 91 fL (82-100); MONOCYTES # (AUTO) 0.7 K/uL (0.1-1.30); MONOCYTES % (AUTO) 9.5 % (2.0-12.0); NEUTROPHILS # (AUTO) 5.1 K/uL (1.8-8.9); NEUTROPHILS % (AUTO) 66.2 % (43.0-81.0); PLATELET COUNT (AUTO) 245 K/uL (150-450); RED BLOOD CELL COUNT(AUTO) 3.46 MIL/uL (4.0-5.2); WHITE BLOOD COUNT (AUTO) 7.6 K/uL (4.3-11.0)
[2022-07-05 06:13] LABS: CALCIUM, SERUM 8.8 mg/dL (8.5-10.1); CARBON DIOXIDE 26 mmol/L (21-32); CHLORIDE 107 mmol/L (98-107); CREATININE 2.5 mg/dL (0.6-1.3); GLUCOSE 143 mg/dL (74-106); MAGNESIUM 2.4 mg/dL (1.8-2.4); PHOSPHORUS 3.8 mg/dL (2.5-4.9); POTASSIUM 3.9 mmol/L (3.5-5.1); SODIUM SERUM 143 mmol/L (136-145); UREA NITROGEN, BLOOD 58 mg/dL (7-18)
--- NOTE | 2022-07-05 07:16 | NUR ---
RN NOTES PATIENT REMAINS STABLE NO SIGNIFICANT CHANGES. IV ACCESS PATENT FLUSHES WELL. WITH BILATERAL WRIST RESTRAINTS IN PLACE, ALL SAFETY MEASURES IN PLACE AT ALL TIMES, WILL ENDORSED TO MORNING SHIFT FOR MARANDA
[2022-07-05 08:00] VITALS: BP 131/63
[2022-07-05] MEDS: BLOOD SUGAR DIAGNOSTIC 1 EACH STRIP IN SCH ×4 (08:30→22:23)
[2022-07-05] MEDS: ENSURE ENLIVE 237 ML LIQUID (VANILLA) PO SCH ×3 (08:41→17:12)
[2022-07-05] MEDS: PANTOPRAZOLE 40 MG TABLET.DR PO SCH (10:00)
[2022-07-05] MEDS: ASPIRIN 81 MG TAB.CHEW PO SCH (10:01)
[2022-07-05] MEDS: AMLODIPINE BESYLATE 5 MG TABLET PO SCH (10:01)
[2022-07-05] MEDS: CARVEDILOL 3.125 MG TABLET PO SCH ×2 (10:05→21:57)
[2022-07-05 12:00] VITALS: BP 121/42
[2022-07-05] MEDS: INSULIN REGULAR, HUMAN 100 UNIT/ML 3 ML VIAL SQ PRN ×3 (12:54→22:24)
[2022-07-05 16:00] VITALS: BP 114/46
[2022-07-05] MEDS: ACETAMINOPHEN 325 MG TABLET PO PRN ×2 (18:34→23:53)
[2022-07-05 20:00] VITALS: BP 118/67
[2022-07-05] MEDS: ATORVASTATIN 10 MG TABLET PO SCH (21:57)
[2022-07-06] VITALS: BP 128/72
[2022-07-06 04:00] VITALS: BP 110/71
[2022-07-06 06:23] LABS: BASOPHILS % (AUTO) 0.3 % (0.0-2.0); EOSINOPHILS % (AUTO) 7.3 % (0.0-6.0); HEMATOCRIT 30 % (33-45); HEMOGLOBIN 9.9 g/dL (11.5-14.8); LYMPHOCYTES # (AUTO) 1.4 K/uL (0.8-4.8); LYMPHOCYTES % (AUTO) 19.3 % (20.0-44.0); MEAN CORPUSCULAR HGB CONC 33 g/dl (31.0-36.0); MEAN CORPUSCULAR VOLUME 90 fL (82-100); MONOCYTES # (AUTO) 0.6 K/uL (0.1-1.30); MONOCYTES % (AUTO) 8.3 % (2.0-12.0); NEUTROPHILS # (AUTO) 4.8 K/uL (1.8-8.9); NEUTROPHILS % (AUTO) 64.8 % (43.0-81.0); PLATELET COUNT (AUTO) 252 K/uL (150-450); RED BLOOD CELL COUNT(AUTO) 3.34 MIL/uL (4.0-5.2); WHITE BLOOD COUNT (AUTO) 7.5 K/uL (4.3-11.0)
[2022-07-06 06:58] LABS: CALCIUM, SERUM 8.7 mg/dL (8.5-10.1); CARBON DIOXIDE 28 mmol/L (21-32); CHLORIDE 107 mmol/L (98-107); CREATININE 2.6 mg/dL (0.6-1.3); GLUCOSE 119 mg/dL (74-106); MAGNESIUM 2.2 mg/dL (1.8-2.4); PHOSPHORUS 3.7 mg/dL (2.5-4.9); POTASSIUM 4.2 mmol/L (3.5-5.1); SODIUM SERUM 143 mmol/L (136-145); UREA NITROGEN, BLOOD 56 mg/dL (7-18)
--- NOTE | 2022-07-06 07:30 | NUR ---
RN OPENING NOTES RECEIVED REPORT FROM NIGHTSHIFT RN. PATIENT IN BED A/O X2 WITH PERIODS OF CONFUSION. WITH IV ACCESS AT LFA #22 PATENT SALINE LOCK. ON ROOM AIR SATING IN HE 90S. AIRFIELD SERVICES OFFICER READING NORMAL SINUS. NO SOB NO DISTRESS NOTED AT THIS TIME. ALL SAFETY MEASURES IN PLACE AT ALL TIMES HOB ELEVATED. CALL LIGHT WITHIN REACH. WILL CONTINUE PLAN OF CARE AND ANTICIPATE NEEDS.
[2022-07-06] MEDS: BLOOD SUGAR DIAGNOSTIC 1 EACH STRIP IN SCH ×4 (07:36→22:59)
[2022-07-06 08:00] VITALS: BP 135/63
[2022-07-06] MEDS: PANTOPRAZOLE 40 MG TABLET.DR PO SCH (09:05)
[2022-07-06] MEDS: CARVEDILOL 3.125 MG TABLET PO SCH ×2 (09:05→22:45)
[2022-07-06] MEDS: ASPIRIN 81 MG TAB.CHEW PO SCH (09:05)
[2022-07-06] MEDS: AMLODIPINE BESYLATE 5 MG TABLET PO SCH (09:05)
[2022-07-06] MEDS: ENSURE ENLIVE 237 ML LIQUID (VANILLA) PO SCH ×3 (09:06→17:30)
[2022-07-06] MEDS: INSULIN REGULAR, HUMAN 100 UNIT/ML 3 ML VIAL SQ PRN ×3 (11:08→22:59)
[2022-07-06 12:00] VITALS: BP 117/52
[2022-07-06 14:06] LABS: *ANA ANTI-CENTROMERE B AB <0.2 AI (0.0-0.9); *ANA ANTI-DNA(DS) AB, QN 1 IU/mL (0-9); *ANA ANTI-JO-1 <0.2 AI (0.0-0.9); *ANA ANTICHROMATIN ANTIBODY <0.2 AI (0.0-0.9); *ANA RNP ANTIBODIES <0.2 AI (0.0-0.9); *ANA SJOGREN'S ANTI-SS-A <0.2 AI (0.0-0.9); *ANA SJOGREN'S ANTI-SS-B <0.2 AI (0.0-0.9); *ANAANTI-SCLERODERMA-70 AB <0.2 AI (0.0-0.9); *ANASMITH AB <0.2 AI (0.0-0.9)
[2022-07-06 16:00] VITALS: BP 118/60
[2022-07-06] MEDS: POLYETHYLENE GLYCOL 3350 17 GM POWD.PACK PO PRN (16:05)
--- NOTE | 2022-07-06 19:00 | NUR ---
PATIENT REMAINS IN ROOM IN STABLE CONDITION. PENDING DISCHARGE PLANNING. WILL ENDORSE TO NIGHTSHIFT RN FOR CONTINUATION OF CARE.
[2022-07-06 20:00] VITALS: BP 119/57
--- NOTE | 2022-07-06 20:09 | NUR ---
ELECTRICAL CONTRACTOR OPENING NOTES: RECEIVED PATIENT AWAKE IN BED ACCOMPANIED BY FAMILY, BED INL LOW POSITION, CALL LIGHTS WITHIIN REACH, NO COMPLAIN OF PAIN AND DISCOMFORT AT THIS TIME ON ROOM AIR SATURATING WELL, PATIENT IS A/OX2-3 ABLE TO EXPRESS NEEDS, ON TELE MONITOR- SR-88 NO SYMPTOMS WAS OBSERVED, ON GRIMM CATHETER-100CC URINE OUTPUT, PATIENT KEPT CLEAN AND DRY ALL NEEDS MET WILL CONTINUE TO MONITOR-
[2022-07-06] MEDS: ATORVASTATIN 10 MG TABLET PO SCH (22:45)
[2022-07-07] VITALS: BP 109/63
[2022-07-07 04:00] VITALS: BP 145/65
--- NOTE | 2022-07-07 06:45 | NUR ---
RETIREMENT MANAGER CLOSING NOTES: PATIENT SLEEP IN BED, BED IN LOW POSITION CALL LIGHTS WITHIN REACH, NO COMPLAIN OF PAIN AND DISCOMFORT AT THIS TIME, ON ROOM AIR SATURATING WELL, NO SOB WAS OBSERVED, PATIENT IS A/OX3 ABLE TO MAKE NEEDS KNOWN, ON BED REST, REFUSED DIAPER CHANGE OFFER 3X BUT SHOUTING AT HOG HANDLER, ENDORSE TO INCOMING SHIFT. ON TELE MONITOR- SR-84, PATIENT KEPT CLEAN AND DRY ALL NEEDS MET ENDORSE TO INCOMING SHIFT.
--- NOTE | 2022-07-07 07:45 | NUR ---
PERCHER OPENING NOTES: RECEIVED PT ASLEEP IN BED. AOX 2-3. NO COMPLAINTS OF PAIN OR DISCOMFORT AT THIS TIME. PT IS ON RA AND TOLERATING IT WELL. IV ACCESS ON LFA 22 GAU[address] SL PATENT AND INTACT. PT IS PO AND RECEIVES MEDS ORALLY CRUSHED IN APPLESAUCE. BED SET TO LOWEST SETTING. SIDERAILS UP AT ALL TIMES. WILL CONTINUE TO MONITOR.
[2022-07-07 08:00] VITALS: BP 141/66
[2022-07-07] MEDS: BLOOD SUGAR DIAGNOSTIC 1 EACH STRIP IN SCH ×4 (08:08→21:05)
[2022-07-07] MEDS: INSULIN REGULAR, HUMAN 100 UNIT/ML 3 ML VIAL SQ PRN ×4 (08:10→21:54)
[2022-07-07] MEDS: ENSURE ENLIVE 237 ML LIQUID (VANILLA) PO SCH ×3 (08:55→16:30)
[2022-07-07] MEDS: PANTOPRAZOLE 40 MG TABLET.DR PO SCH (08:59)
[2022-07-07] MEDS: ASPIRIN 81 MG TAB.CHEW PO SCH (08:59)
[2022-07-07] MEDS: CARVEDILOL 3.125 MG TABLET PO SCH ×2 (09:00→21:05)
[2022-07-07] MEDS: AMLODIPINE BESYLATE 5 MG TABLET PO SCH (09:02)
[2022-07-07 12:00] VITALS: BP 111/62
[2022-07-07 12:08] LABS: BASOPHILS % (AUTO) 0.3 % (0.0-2.0); EOSINOPHILS % (AUTO) 6.1 % (0.0-6.0); HEMATOCRIT 30 % (33-45); HEMOGLOBIN 9.6 g/dL (11.5-14.8); LYMPHOCYTES # (AUTO) 1.4 K/uL (0.8-4.8); LYMPHOCYTES % (AUTO) 19.2 % (20.0-44.0); MEAN CORPUSCULAR HGB CONC 32 g/dl (31.0-36.0); MEAN CORPUSCULAR VOLUME 91 fL (82-100); MONOCYTES # (AUTO) 0.6 K/uL (0.1-1.30); MONOCYTES % (AUTO) 8.2 % (2.0-12.0); NEUTROPHILS # (AUTO) 4.8 K/uL (1.8-8.9); NEUTROPHILS % (AUTO) 66.2 % (43.0-81.0); PLATELET COUNT (AUTO) 241 K/uL (150-450); RED BLOOD CELL COUNT(AUTO) 3.25 MIL/uL (4.0-5.2); WHITE BLOOD COUNT (AUTO) 7.2 K/uL (4.3-11.0)
[2022-07-07 12:27] LABS: CALCIUM, SERUM 8.2 mg/dL (8.5-10.1); CARBON DIOXIDE 28 mmol/L (21-32); CHLORIDE 105 mmol/L (98-107); CREATININE 2.7 mg/dL (0.6-1.3); GLUCOSE 247 mg/dL (74-106); MAGNESIUM 2.3 mg/dL (1.8-2.4); PHOSPHORUS 3.3 mg/dL (2.5-4.9); POTASSIUM 4.9 mmol/L (3.5-5.1); SODIUM SERUM 139 mmol/L (136-145); UREA NITROGEN, BLOOD 59 mg/dL (7-18)
--- NOTE | 2022-07-07 12:59 | NUR ---
FINANCIAL SERVICE REP NOTE ASSISTED TO FEED PATINT ATE 75% ,ALL NEEDS ATTENDED ,WILL CONT TO MONITOR
--- NOTE | 2022-07-07 13:54 | NUR ---
supervisor telephone information note family at bedside, all needs attended
--- NOTE | 2022-07-07 15:43 | NUR ---
daughter seema at bedside upset no cm talking to her regarding discharge planning.able to connect buckeye cm via phone.
--- NOTE | 2022-07-07 15:44 | NUR ---
Natan Michaels talk to daughter Noemy regarding rehab placement .
--- NOTE | 2022-07-07 15:55 | NUR ---
LAND CHECKER NOTE PT IS AWAKE IN BED IN STABLE CONDITION. NO COMPLAINTS OF PAIN OR DISCOMFORT AT THIS TIME. WILL CONTINUE TO ANTICIPATE NEEDS.
[2022-07-07 16:00] VITALS: BP 112/53
[2022-07-07] MEDS: POLYETHYLENE GLYCOL 3350 17 GM POWD.PACK PO PRN (18:25)
--- NOTE | 2022-07-07 18:29 | NUR ---
DIRECTOR OF INFORMATICS NOTES: PT COMPLAINED OF CONSTIPATION AND ASKED FOR MIRALAX. MIRALAX PRN GIVEN PO PER PTS REQUEST. WILL MONITOR FOR EFFECTIVENESS.
--- NOTE | 2022-07-07 18:29 | NUR ---
MS RN NOTE PATIENT IN BED HAVING DINNER , FAMILY AT BEDSIDE , NO SOB NOTED AT THIS TIME, CALL .LIGHT WITHIN REACH , WILL CONT TO MONITOR
--- NOTE | 2022-07-07 19:40 | NUR ---
GROUP THERAPY COUNSELOR OPENING NOTES: RECEIVED PATIENT AWAKE IN BED ACCOMPANIED BY FAMILY, ON O2 VIA NC AT 2L TOLERATING WELL SATING >95%, PATIENT IS A/OX2-3 ABLE TO EXPRESS NEEDS, ON TELE MONITOR- NO SYMPTOMS WAS OBSERVED,PATIENT IS A/OX2-3 ABLE TO EXPRESS NEEDS, ON TELE MONITOR- SR- NO SYMPTOMS WAS OBSERVED,BED IN LOW POSITION, CALL LIGHTS WITHIIN REACH, NO COMPLAIN OF PAIN AND DISCOMFORT AT THIS TIME, ON GRIMM CATHETER-100CC URINE OUTPUT, PATIENT KEPT CLEAN AND DRY ALL NEEDS MET WILL CONTINUE TO MONITOR THROUGHOUT THE SHIFT. Addendum: 07/08/22 at 0622 by AKOSUA ADAMS RN MS RN OPENING NOTES
[2022-07-07 20:00] VITALS: BP 122/60
[2022-07-07] MEDS: ATORVASTATIN 10 MG TABLET PO SCH (21:04)
--- NOTE | 2022-07-07 22:00 | NUR ---
RN NOTE BS CHECKED AT 152 MD/DL, 2 UNITS OF INSULIN GIVEN PER SLIDING SCALE. WILL CONT TO MONITOR.
[2022-07-08 04:00] VITALS: BP 128/61
--- NOTE | 2022-07-08 06:22 | NUR ---
MS RN CLOSING NOTES PATIENT SLEEPING IN BED BUT EASILY AROUSABLE TO TOUCH AND VOICE, ON RA TOLERATING WELL SATING 100%, PATIENT IS A/OX2-3 ABLE TO EXPRESS NEEDS, NO COMPLAIN OF PAIN AND DISCOMFORT AT THIS TIME, SAFETY MEASURES IN PLACE, BED IN LOWEST AND LOCKED POSITION, CALL LIGHTS WITHIN REACH, , ON GRIMM CATHETER-100CC URINE OUTPUT, PATIENT KEPT CLEAN AND DRY ALL NEEDS MET WILL CONTINUE TO MONITOR THROUGHOUT THE SHIFT. Addendum: 07/08/22 at 0627 by AKOSUA ADAMS RN MS RN CLOSING NOTES PATIENT SLEEPING IN BED BUT EASILY AROUSABLE TO TOUCH AND VOICE, ON RA TOLERATING WELL SATING 100%, PATIENT IS A/OX2-3 ABLE TO EXPRESS NEEDS, NO COMPLAIN OF PAIN AND DISCOMFORT AT THIS TIME, SAFETY MEASURES IN PLACE, BED IN LOWEST AND LOCKED POSITION, CALL LIGHTS WITHIN REACH, ON GRIMM CATHETER YELLOW COLORED URINE TO GRAVITY, PATIENT KEPT CLEAN AND DRY, ALL DUE MEDS GIVEN, WILL ENDORSE TO AM SHIFT NURSE FOR CONTINUITY OF CARE.
[2022-07-08 06:44] LABS: BASOPHILS % (AUTO) 0.3 % (0.0-2.0); HEMATOCRIT 28 % (33-45); HEMOGLOBIN 9.3 g/dL (11.5-14.8); LYMPHOCYTES # (AUTO) 1.7 K/uL (0.8-4.8); LYMPHOCYTES % (AUTO) 20.5 % (20.0-44.0); MEAN CORPUSCULAR HGB CONC 33 g/dl (31.0-36.0); MEAN CORPUSCULAR VOLUME 90 fL (82-100); MONOCYTES # (AUTO) 0.7 K/uL (0.1-1.30); MONOCYTES % (AUTO) 8.1 % (2.0-12.0); NEUTROPHILS # (AUTO) 5.4 K/uL (1.8-8.9); NEUTROPHILS % (AUTO) 65.1 % (43.0-81.0); PLATELET COUNT (AUTO) 253 K/uL (150-450); RED BLOOD CELL COUNT(AUTO) 3.17 MIL/uL (4.0-5.2); WHITE BLOOD COUNT (AUTO) 8.3 K/uL (4.3-11.0)
[2022-07-08 06:58] LABS: CALCIUM, SERUM 8.4 mg/dL (8.5-10.1); CARBON DIOXIDE 29 mmol/L (21-32); CHLORIDE 106 mmol/L (98-107); CREATININE 2.5 mg/dL (0.6-1.3); GLUCOSE 156 mg/dL (74-106); MAGNESIUM 2.2 mg/dL (1.8-2.4); PHOSPHORUS 3.4 mg/dL (2.5-4.9); POTASSIUM 5.1 mmol/L (3.5-5.1); SODIUM SERUM 142 mmol/L (136-145); UREA NITROGEN, BLOOD 64 mg/dL (7-18)
[2022-07-08] MEDS: BLOOD SUGAR DIAGNOSTIC 1 EACH STRIP IN SCH ×4 (07:30→21:28)
[2022-07-08] MEDS: ASPIRIN 81 MG TAB.CHEW PO SCH (09:30)
[2022-07-08] MEDS: PANTOPRAZOLE 40 MG TABLET.DR PO SCH (09:30)
[2022-07-08] MEDS: CARVEDILOL 3.125 MG TABLET PO SCH ×2 (09:31→21:27)
[2022-07-08] MEDS: AMLODIPINE BESYLATE 5 MG TABLET PO SCH (09:31)
[2022-07-08] MEDS: ENSURE ENLIVE 237 ML LIQUID (VANILLA) PO SCH ×3 (09:32→17:04)
[2022-07-08] MEDS: INSULIN REGULAR, HUMAN 100 UNIT/ML 3 ML VIAL SQ PRN ×3 (09:52→21:30)
[2022-07-08] MEDS ORDERED: AMLO-212 PO (11:28)
[2022-07-08] MEDS ORDERED: ATOR10TA PO (11:28)
[2022-07-08] MEDS ORDERED: ASPI-1169 PO (11:28)
[2022-07-08] MEDS ORDERED: CARV3.122 PO (11:28)
[2022-07-08 18:44] VITALS: BP 122/60
--- NOTE | 2022-07-08 19:30 | NUR ---
RN NOTES, PATIENT SLEEPING AT THIS TIME, ON RA WITH OPTIMAL O2 ST LEVEL, PATIENT IS A/OX2-3, ALL SAFETY MEASURES IN PLACE, BED IN LOWEST AND LOCKED POSITION, CALL LIGHTS WITHIN REACH, WILL CONTINUE TO MONITOR.
[2022-07-08 20:00] VITALS: BP 115/59
[2022-07-08] MEDS: ACETAMINOPHEN 325 MG TABLET PO PRN (21:26)
[2022-07-08] MEDS: ATORVASTATIN 10 MG TABLET PO SCH (21:27)
[2022-07-09 04:00] VITALS: BP 129/68
--- NOTE | 2022-07-09 06:37 | NUR ---
END OF SHIFT, PATIENT SLEEPING AT THIS TIME, ON RA WITH OPTIMAL O2 ST LEVEL, PATIENT IS A/OX2-3, NO SIGNIFICANT CHANGE IN CONDITION DURING THE NIGHT, CONTINUE WITH F/C IN PLACED 300ML OUTPUT, MED SURGE STATUS, VITAL SINGS STABLE, DC PLANNING, ALL SAFETY MEASURES IN PLACE, BED IN LOWEST AND LOCKED POSITION, CALL LIGHTS WITHIN REACH, WILL ENDORSE CONTINUITY OF CARE TO ONCOMING NURSE.
--- NOTE | 2022-07-09 07:15 | NUR ---
RN OPENING NOTES: RECEIVED PATIENT IN BED ASLEEP BUT EASILY AROUSES TO VOICE AND TOUCH. PATIENT IS ALERT, ORIENTED X 2. NO SOB NOTED, BREATHING EVEN AND UNLABORED. ON OXYGEN @ 2L/MIN VIA N/C WITH OXYGEN SATURATION OF 100%. IV ACCESS ON LEFT FOREARM INTACT, PATENT AND FLUSHES WELL, NO S/S INFILTRATION NOTED. GRIMM CATHETER IN PLACE, DRAINING WITH YELLOW COLORED URINE, NO HEMATURIA AND NO SEDIMENTATION NOTED. ALL SAFETY MEASURES IN PLACE. BED LOCKED AND IN LOWEST POSITION WITH BED ALARM ON. WILL CONTINUE TO MONITOR PATIENT THROUGHOUT SHIFT.
[2022-07-09] MEDS: ENSURE ENLIVE 237 ML LIQUID (VANILLA) PO SCH ×2 (07:58→12:10)
[2022-07-09 08:00] VITALS: BP 127/63
[2022-07-09] MEDS: BLOOD SUGAR DIAGNOSTIC 1 EACH STRIP IN SCH ×2 (08:00→12:10)
[2022-07-09] MEDS: ASPIRIN 81 MG TAB.CHEW PO SCH (08:50)
[2022-07-09] MEDS: PANTOPRAZOLE 40 MG TABLET.DR PO SCH (08:51)
[2022-07-09] MEDS: AMLODIPINE BESYLATE 5 MG TABLET PO SCH (08:51)
[2022-07-09] MEDS: CARVEDILOL 3.125 MG TABLET PO SCH (08:51)
--- NOTE | 2022-07-09 09:35 | NUR ---
PHYSICAL THERAPIST CAME BY AND AMBULATED THE PATIENT ALONG THE HALLWAY. PATIENT IN NO ACUTE DISTRESS.
--- NOTE | 2022-07-09 10:45 | NUR ---
SPOKE WITH KAVEH BLADE GRINDER @ [phone] AND INFORMED OF DISCHARGE PLAN FOR THE PATIENT TODAY AND THAT SHE NEEDS A COPY OF THE PATIENT'S COVID VACCINE REPORT. PATIENT HAD 3 VACCINES OF MODERNA IN THE PAST. FAXED TO THE GIVEN NUMBER AND RECEIVED CONFIRMATION RECEIPT.
--- NOTE | 2022-07-09 10:47 | NUR ---
TRIED TO CALL THE FACILITY, [facility] @ BUT WAS PLACED ON HOLD FOR A LONG TIME, PHONE WAS PICKED UP SEVERAL TIMES WHILE THE NURSE WAS ON HOLD AND WAS TOLD THAT THE CALL WILL BE TRANSFERRED TO THE ADMITTING NURSE BUT WAS ON HOLD FOR 30 MINUTES AND NO NURSE PICKED UP THE PHONE.
[2022-07-09 12:00] VITALS: BP 127/63
[2022-07-09] MEDS: INSULIN REGULAR, HUMAN 100 UNIT/ML 3 ML VIAL SQ PRN (12:07)
--- NOTE | 2022-07-09 12:57 | NUR ---
REPORT GIVEN TO [facility] IN [facility].
--- NOTE | 2022-07-09 14:16 | NUR ---
PATIENT WAS PICKED UP ACCOMPANIED BY TWO PERSONNEL. REPORT GIVEN. REMOVED IV LINE NOTED WITH HUB INTACT. REMOVED PATIENT'S ID BAND. PATIENT LEFT IN NO ACUTE DISTRESS.
== END 2022-07-09 16:21 | DRG 280 ==
LOC: ER 19:57 → TRANSITION 06-28 03:28 → TELE1 06-28 10:03 → MEDSG1 06-28 10:09 → TELE1 06-28 11:16 → MEDSG1 07-07 14:08
PROVIDERS: ADMIT Nurse Practitioner Acute Care; ATTEND Internal Medicine
DX: I13.0 Hypertensive heart and chronic kidney disease with heart failure and stage 1 through stage 4 chronic kidney disease, or unspecified chronic kidney disease (principal); I21.A1 Myocardial infarction type 2; G93.41 Metabolic encephalopathy; I50.33 Acute on chronic diastolic (congestive) heart failure; J96.01 Acute respiratory failure with hypoxia; N17.0 Acute kidney failure with tubular necrosis; J98.11 Atelectasis; F03.918 Unspecified dementia, unspecified severity, with other behavioral disturbance; E78.5 Hyperlipidemia, unspecified; E87.5 Hyperkalemia; F29 Unspecified psychosis not due to a substance or known physiological condition; N18.9 Chronic kidney disease, unspecified; E11.22 Type 2 diabetes mellitus with diabetic chronic kidney disease; Z20.822 Contact with and (suspected) exposure to COVID-19; E11.65 Type 2 diabetes mellitus with hyperglycemia
CPT/HCPCS: 36415; 70450-TC; 70551-TC; 71045-TC; 76770-TC; 80048-TC; 80053-TC; 80061-TC; 80076-TC; 81001; 82306; 82607-TC; 82962-TC; 83605-TC; 83735-TC; 83880; 84100-TC; 84439-TC; 84443-TC; 84484-TC; 85025-TC; 85610-TC; 85652-TC; 85730-TC; 86140-TC; 86225; 86235; 86706; 87040-TC; 87081-TC; 87086-TC; 87340; 93307-TC; 97112-TC; 97116-TC; 97530-TC; C9113; C9803; G0378; J0456; J0692; J0696; J1644; J1650; J1815; J1940; J2270; J2405; J3370; J3490; J7030; J7050; J7060